=== PATIENT | male | born 1975 | race Caucasian/White ===

== ENCOUNTER → 2021-01-21 | Outpatient (CLI) | payer OTHER ==
[~2021-01-21] MED LIST: ASCO500C PO; CHOL40003 PO; CITA40TA5 PO; CLON2TAB9 PO; COLE1TAB PO; LUTE1CAP5 PO; OXYC-325 PO; RABE20TA18 PO
== END ==
LOC: LAB 10:10
PROVIDERS: ATTEND Surgery
DX: Z01.812 Encounter for preprocedural laboratory examination (principal); K40.90 Unilateral inguinal hernia, without obstruction or gangrene, not specified as recurrent; Z88.0 Allergy status to penicillin; Z20.822 Contact with and (suspected) exposure to COVID-19
CPT/HCPCS: U0003

== ENCOUNTER 2021-01-23 06:34 | Day surgery (SDC) | payer OTHER ==
[~2021-01-23 06:34] MED LIST changes: +ACETAMINOPHEN 500 MG TABLET PO ONE; +HYDROmorphone 2 MG/ML VIAL IVP PRN; +IV RINGERS,LACTATED 1000ML 1,000 ML IV SCH; +MORPHINE SULFATE 2 MG/ML VIAL. IVP PRN; -OXYC-325 PO; +PROCHLORPERAZINE 10 MG/2 ML VIAL. IVP PRN; +fentaNYL PF VIAL 100 MCG/2 ML VIAL IVP PRN
[2021-01-23] MEDS ORDERED: BUPIVACAINE-EPI 0.25% 30 ML VIAL KIT. ONE (07:02)
[2021-01-23] MEDS ORDERED: fentaNYL PF VIAL 100 MCG/2 ML VIAL ONE ×2 (07:18→09:15)
[2021-01-23] MEDS ORDERED: MIDAZOLAM HCL/PF 2 MG/2 ML VIAL. ONE (07:18)
[2021-01-23] MEDS ORDERED: PROPOFOL 10 MG/ML (20ML) VIAL. IV ONE (07:19)
[2021-01-23] MEDS ORDERED: LIDOCAINE 2% PF 5 ML VIAL. ONE (07:19)
[2021-01-23] MEDS ORDERED: DEXAMETHASONE SOD PHOS 4 MG/ML VIAL ONE (07:19)
[2021-01-23] MEDS ORDERED: ONDANSETRON PF 4 MG/2 ML VIAL. ONE (07:19)
--- NOTE | 2021-01-23 07:43 | PDOC1 ---
History and Physical Date of Admission Date of Admission DATE: 01/23/21 TIME: 07:41 Identification/Chief Complaint Chief Complaint Right groin pain Source Source: Patient History of Present Illness History of Present Illness 45-year-old male with complaints of right groin pain and discomfort especially with activity denies any nausea vomiting fevers or chills Past Medical History Cardiovascular: No pertinent hx Pulmonary: No pertinent hx GI: No pertinent hx Heme/Onc: No pertinent hx Hepatobiliary: No pertinent hx Psych: Anxiety, Depression Rheumatologic: No pertinent hx Infectious disease: No pertinent hx ENT: No pertinent hx Renal/: No pertinent hx Endocrine: No pertinent hx Dermatology: No pertinent hx Past Surgical History Past Surgical History: Cholecystectomy, Hernia Repair Family History Family History: No Significant Social History Smoke: No ALCOHOL: rare Current Medications Current Medications Current Medications Fentanyl Citrate (Fentanyl 2ml Vial) 25 mcg PRN Q5MIN PRN IVP MILD PAIN 1-3; Start 01/23/21 at 06:00; Stop 01/23/21 at 20:00 Fentanyl Citrate (Fentanyl 2ml Vial) 50 mcg PRN Q5MIN PRN IVP MODERATE PAIN 4- 6; Start 01/23/21 at 06:00; Stop 01/23/21 at 20:00 Morphine Sulfate (Morphine Sulfate) 1 mg PRN Q10MIN PRN IVP SEVERE PAIN 7-10; Start 01/23/21 at 06:00; Stop 01/23/21 at 20:00 Ringer's Solution 1,000 ml @ 30 mls/hr Q24H IV Last administered on 01/23/21at 07:04; Start 01/23/21 at 06:00; Stop 01/23/21 at 17:59 Hydromorphone HCl (Dilaudid) 0.5 mg PRN Q10MIN PRN IVP SEVERE PAIN 7-10, 2nd CHOICE; Start 01/23/21 at 06:00; Stop 01/23/21 at 20:00 Prochlorperazine Edisylate (Compazine) 5 mg PACU PRN PRN IVP NAUSEA, MRX1; Start 01/23/21 at 06:00; Stop 01/23/21 at 20:00 Cefazolin Sodium/ Dextrose 50 ml @ 100 mls/hr 1X PREOP PRN IV PRIOR TO PROCEDURE; Start 01/24/21 at 06:15; Stop 01/24/21 at 06:16 Acetaminophen (Tylenol) 1,000 mg 1X ONCE PO Last administered on 01/23/21at 07:05; Start 01/23/21 at 06:15; Stop 01/23/21 at 06:16; Status DC Levofloxacin/ Dextrose 100 ml @ 100 mls/hr 1X ONCE IV ; Start 01/23/21 at 06:30; Stop 01/23/21 at 07:29; Status DC Levofloxacin/ Dextrose 150 ml @ As Directed STK-MED ONCE IV ; Start 01/23/21 at 06:17; Stop 01/23/21 at 06:17; Status DC Levofloxacin/ Dextrose 100 ml @ As Directed STK-MED ONCE IV ; Start 01/23/21 at 06:18; Stop 01/23/21 at 06:18; Status DC Bupivacaine HCl/ Epinephrine Bitart (Sensorcain-Epi 0.25% Kit) 30 ml STK-MED ONCE .ROUTE ; Start 01/23/21 at 07:02; Stop 01/23/21 at 07:02; Status DC Fentanyl Citrate (Fentanyl 2ml Vial) 100 mcg STK-MED ONCE .ROUTE ; Start 01/23/21 at 07:18; Stop 01/23/21 at 07:19; Status DC Midazolam HCl (Versed) 2 mg STK-MED ONCE .ROUTE ; Start 01/23/21 at 07:18; Stop 01/23/21 at 07:19; Status DC Propofol (Diprivan) 200 mg STK-MED ONCE IV ; Start 01/23/21 at 07:19; Stop 01/23/21 at 07:19; Status DC Lidocaine HCl (Lidocaine Pf 2% Vial) 5 ml STK-MED ONCE .ROUTE ; Start 01/23/21 at 07:19; Stop 01/23/21 at 07:19; Status DC Ondansetron HCl (Zofran) 4 mg STK-MED ONCE .ROUTE ; Start 01/23/21 at 07:19; Stop 01/23/21 at 07:19; Status DC Dexamethasone Sodium Phosphate (Decadron) 4 mg STK-MED ONCE .ROUTE ; Start 01/23/21 at 07:19; Stop 01/23/21 at 07:19; Status DC Active Scripts Active Reported Citalopram Hbr (Citalopram Hydrobromide) 40 Mg Tablet 40 Mg PO DAILY Vitamin C (Ascorbic Acid) 500 Mg Capsule.er 500 Mg PO DAILY Vitamin D3 (Cholecalciferol (Vitamin D3)) 100 Mcg Capsule 100 Mcg PO BID Clonazepam 2 Mg Tablet 2 Mg PO PRN PRN Colestid (Colestipol Hcl) 1 Gm Tablet 1 Gm PO BID Ocuvite Lutein 25-5 mg Softgel (Lutein/Zeaxanthin) 1 Each Capsule 1 Each PO DAILY Aciphex (Rabeprazole Sodium) 20 Mg Tablet.dr 20 Mg PO DAILY Allergies Allergies: Coded Allergies: Penicillins (Verified Allergy, Intermediate, Unknown, 01/23/21) shellfish derived (Verified Adverse Reaction, Intermediate, Nausea and Vomiting, 01/23/21) ROS Gastrointestinal: Yes Other (Right groin pain) Physical Exam General: Alert, Oriented X3, Cooperative, No acute distress HEENT: Atraumatic, EOMI Lungs: Clear to auscultation, Normal air movement Heart: RRR, no murmurs Abdomen: Normal bowel sounds, Soft, No tenderness Male Genitals Exam: other (Right inguinal hernia) Rectal Exam: not examined Skin: No significant lesion Neuro: Normal speech Psych/Mental Status: Mental status NL Vitals Vitals Vital Signs Date Time Temp Pulse Resp B/P (MAP) Pulse Ox O2 Delivery O2 Flow Rate FiO2 01/23/21 07:02 97.3 63 16 121/72 95 Room Air 97.3 VTE Prophylaxis Ordered VTE Prophylaxis Devices: Yes VTE Pharmacological Prophylaxi: Contraindicated Assessment/Plan Assessment/Plan Right inguinal hernia plan repair open with mesh Justifications for Admission Other Justification BRENT RUIZ MD Jan 23, 2021 07:43
[2021-01-23] MEDS ORDERED: SEVOFLURANE 61 TO 120 MINUTES. IH ONE (08:53)
--- NOTE | 2021-01-23 08:53 | PDOC4 ---
Operative Note Operative Note Date: January 232020 at 851 Preoperative diagnosis right inguinal hernia Postoperative diagnosis the same Procedure: Right inguinal hernia repair with mesh Surgeon: Aidan Specimen: None Dictation: Patient is a 45-year-old male complains of painful right groin on exam he has small inguinal hernia. Procedure of right inguinal hernia repair with mesh was explained to the patient detail was benefits were also discussed including bleeding infection alternatives to this procedure also discussed with the patient who seemed to understand and gave both verbal and written consent to have the procedure performed. Patient was taken to the operating room placed in the supine position general anesthesia was initiated once patient was sleeping intubated his abdomen and groin were prepped and draped usual sterile fashion using ChloraPrep. An area over the external canal was injected quarter percent Marcaine with epinephrine incision was made with a 10 blade scalpel is carried down through the subcutaneous tissues down to the external fascia which was incised with 15 blade scalpel and further opened with Metzenbaum scissors. The cord structures were encircled with a Vanessa drain appear to be a direct hernia in this area. Phasic's mesh plug was placed in the hernia defect and a mesh overlay was then placed on the floor the inguinal canal this was sewn into place with a running double-armed 3-0 Prolene suture. The cord structures returned to the floor the inguinal canal and the external fascia was closed with a running 0 Vicryl. Deep subcutaneous layer was closed running 3-0 Vicryl and the skin was reapproximated for subcuticular Monocryl Mastisol Steri-Strips and island dressings were applied. Patient was awakened and extubated in the operating room taken to recovery in stable condition all sponge instrument needle counts listed as correct estimated blood loss 10 mL. BRENT RUIZ MD Jan 23, 2021 08:53
[2021-01-23] MEDS ORDERED: KETOROLAC 30 MG/ML VIAL. ONE (08:56)
--- NOTE | 2021-01-23 08:56 | DISCH ---
DISCHARGE INSTRUCTIONS Condition on Discharge Condition on Discharge: Stable Activity After Discharge Activity Instructions for Disc: Avoid exertion Other activity instructions: No lifting more than 20 pounds for 2 weeks Diet after Discharge Diet after Discharge: Regular Wound Incision Care Other wound/incision instructi: May shower in 24 hours Contacting the DRCallie after DC Call your doctor for: If your condition worsens Follow-Up Follow up with: Dr. Ruiz in 2 weeks BRENT RUIZ MD Jan 23, 2021 08:56
[2021-01-23] MEDS ORDERED: OXYC-325 PO (09:11)
[2021-01-23] MEDS: fentaNYL PF VIAL 100 MCG/2 ML VIAL IVP PRN ×2 (09:16→09:34)
[2021-01-23] MEDS ORDERED: oxyCODONE/APAP 5/325 1 TAB TABLET PO ONE ×2 (09:30)
[2021-01-23] MEDS ORDERED: MORPHINE SULFATE 2 MG/ML VIAL. ONE (09:49)
[2021-01-23 09:54] VITALS: BP 154/66
== END 2021-01-23 10:27 | disposition home or self-care (01) ==
LOC: SURG 06:34 → EDUNIT# 08:00 → SURG 10:27
PROVIDERS: ATTEND Surgery
DX: K40.90 Unilateral inguinal hernia, without obstruction or gangrene, not specified as recurrent (principal); G47.30 Sleep apnea, unspecified; K21.9 Gastro-esophageal reflux disease without esophagitis; F32.9 Major depressive disorder, single episode, unspecified; F41.9 Anxiety disorder, unspecified; Z79.899 Other long term (current) drug therapy; Z98.890 Other specified postprocedural states; Z72.89 Other problems related to lifestyle; Z88.0 Allergy status to penicillin; Z91.013 Allergy to seafood; Z88.8 Allergy status to other drugs, medicaments and biological substances
CPT/HCPCS: 49505; A4364; C1781; J1100; J1885; J1956; J2250; J2270; J2405; J2704; J3010; J7120; A4452